=== PATIENT | female | born 1990 | race Caucasian/White ===

== ENCOUNTER 2020-10-02 09:49 | Inpatient (IN) | payer OTHER ==
[~2020-10-02] VITALS: Ht 170.2 cm; Wt 77.2 kg
[~2020-10-02 09:49] MED LIST: ETHI1TAB26 PO; OXYC1TAB14; PREN-3; SERT100T PO
[2020-10-02] MEDS ORDERED: LIDOCAINE 1%, 20ML ONE (10:09)
[2020-10-02] MEDS ORDERED: NEWBORN KIT ONE (10:09)
[2020-10-02] MEDS ORDERED: OXYTOCIN 30U/ 0.9% NaCL 500ML 500 ML ONE (10:09)
[2020-10-02] MEDS ORDERED: D5%-LACTATED RINGERS 1,000 ML IV SCH ×2 (10:30)
[2020-10-02] MEDS ORDERED: METOCLOPRAMIDE 5 MG/ML, 2ML IVPush PRN ×3 (10:30)
[2020-10-02] MEDS ORDERED: FENTANYL PF 100 MCG/2ML IVPush PRN ×2 (10:30)
[2020-10-02] MEDS ORDERED: LACTATED RINGERS 1,000 ML IV SCH ×2 (10:30→12:00)
[2020-10-02] MEDS ORDERED: TERBUTALINE 1 MG/ML, 1ML IVPush PRN ×2 (10:30)
[2020-10-02] MEDS ORDERED: FENTANYL PF 100 MCG/2ML IV PRN ×2 (10:30)
[2020-10-02] MEDS ORDERED: ONDANSETRON 2MG/ML, 2ML IVPush PRN ×3 (10:30)
[2020-10-02] MEDS: D5%-LACTATED RINGERS 1,000 ML IV SCH ×2 (10:30→18:30)
[2020-10-02] MEDS ORDERED: OXYTOCIN 30U/ 0.9% NaCL 500ML 500 ML IV ONE ×3 (10:30)
[2020-10-02] MEDS ORDERED: TERBUTALINE 1 MG/ML, 1ML SQ PRN ×3 (10:30)
[2020-10-02 10:44] LABS: ALANINE AMINOTRANSFERASE 6 U/L (12-78); ALBUMIN 2.5 g/dL (3.4-5.0); ANION GAP 10 mmol/L (5-15); CALCIUM 8.6 mg/dL (8.5-10.1); CHLORIDE 110 mmol/L (98-107); CREATININE 0.63 mg/dL (0.55-1.02)
[2020-10-02 10:45] VITALS: BP 135/95
[2020-10-02 10:48] LABS: ALKALINE PHOSPHATASE 193 U/L (45-117); BILIRUBIN,TOTAL 0.3 mg/dL (0.2-1.0); MEAN CORPUSCULAR HEMOGLOBIN 21.2 pg (27.0-34.8); MEAN CORPUSCULAR HGB CONC 30.2 g/dL (32.4-35.8); MEAN PLATELET VOLUME 9.3 fL (7.4-10.4); PLATELET COUNT 231 x10^3/uL (130-400); RED BLOOD COUNT 3.19 x10^6/uL (3.82-5.3); TOTAL PROTEIN 6.8 g/dL (6.4-8.2)
[2020-10-02 10:56] LABS: BAND#(MANUAL) 0.11 x10^3/uL; BANDS%(MANUAL) 1 % (0-7); EOS#(MANUAL) 0.22 x10^3/uL (0.0-0.4); EOS% (MANUAL) 2 % (1-7); LYMPH#(MANUAL) 1.42 x10^3/uL (1-3.4); LYMPHS% (MANUAL) 13 % (22-44); MD YES; METAMYELOCYTES# (MANUAL) 0.11 x10^3/uL (0-0); METAMYELOCYTES% (MANUAL) 1 % (0-1); MONOS#(MANUAL) 0.44 x10^3/uL (0.3-2.7); MONOS% (MANUAL) 4 % (2-9); SEG#(MANUAL) 8.61 x10^3/uL (1.8-6.8); SEGS% (MANUAL) 79 % (42-75)
[2020-10-02 10:57] LABS: ANISOCYTOSIS 1+; HYPOCHROMIA 1+; MICROCYTOSIS 1+; POLYCHROMASIA 1+
[2020-10-02 10:58] LABS: <PLATELET ESTIMATE> ADEQUATE; <PLT MORPHOLOGY> NORMAL PLT MORPH
[2020-10-02] MEDS ORDERED: TRANEXAMIC ACID 100 MG/ML, 10ML ONE (11:04)
[2020-10-02 11:15] LABS: AMPHETAMINE SCREEN, URINE Negative (Negative); BARBITURATE SCREEN, URINE Negative (Negative); BENZODIAZEPINE SCREEN, URINE Negative (Negative); CANNABINOID SCREEN, URINE Positive (Negative); COCAINE SCREEN, URINE Negative (Negative); METHADONE SCREEN, URINE Negative (Negative); OPIATE SCREEN, URINE Negative (Negative)
[2020-10-02] MEDS ORDERED: BUPIVACAINE 0.25% ONE (11:17)
[2020-10-02] MEDS ORDERED: FENTANYL/BUPIV./NS/PF 250 ML EPIDCONT ONE (11:18)
[2020-10-02] MEDS: LACTATED RINGERS 1,000 ML IV SCH ×2 (11:24→16:01)
[2020-10-02] MEDS ORDERED: FENTANYL/BUPIV./NS/PF 250 ML EPIDCONT SCH (12:00)
[2020-10-02] MEDS ORDERED: EPHEDRINE 50 MG/ML, 1ML IVPush PRN (12:00)
[2020-10-02] MEDS ORDERED: LACTATED RINGERS 1,000 ML IVBOLUS PRN (12:00)
[2020-10-02] MEDS ORDERED: TRANEXAMIC ACID 100 MG/ML, 10ML IV ONE (13:00)
[2020-10-02] MEDS ORDERED: PREN1TAB60 PO (14:55)
[2020-10-02] MEDS ORDERED: ONDANSETRON 2MG/ML, 2ML IV PRN (18:30)
[2020-10-02] MEDS ORDERED: DIPH,PERTUSS(ACELL),TET VAC/PF NC IM-VACC PRN (18:30)
[2020-10-02] MEDS ORDERED: BISACODYL 10 MG SUPP PR PRN (18:30)
[2020-10-02] MEDS ORDERED: MISOPROSTOL 200 MCG TABLET PR PRN (18:30)
[2020-10-02] MEDS ORDERED: SIMETHICONE 80 MG CHEW TAB PO PRN (18:30)
[2020-10-02] MEDS ORDERED: GLYCERIN ADULT SUPP PR PRN (18:30)
[2020-10-02] MEDS ORDERED: CARBOPROST TROMETHAMINE 250 MCG/ML, 1ML IM PRN (18:30)
[2020-10-02] MEDS ORDERED: MAGNESIUM HYDROXIDE 8%, 30ML UDC PO PRN (18:30)
[2020-10-02] MEDS ORDERED: MEASLES,MUMPS&RUBELLA VACC/PF 0.5 ML SQ-VACC PRN (18:30)
[2020-10-02] MEDS ORDERED: ACETAMINOPHEN 325 MG TABLET PO PRN (18:30)
[2020-10-02] MEDS: OXYTOCIN 30U/ 0.9% NaCL 500ML 500 ML IV SCH (18:50)
[2020-10-02 21:15] VITALS: BP 140/83
[2020-10-02] MEDS: OXYcodone/APAP 5/325MG TABLET PO PRN (22:23)
[2020-10-02 23:44] LABS: MICROSCOPIC INDICATED
[2020-10-03] VITALS: BP 119/77
[2020-10-03 02:36] LABS: BASOPHILS % (AUTO) 1 % (0-1); EOSINOPHILS % (AUTO) 0 % (1-7); LYMPHOCYTES % (AUTO) 12 % (22-44); MEAN CORPUSCULAR HEMOGLOBIN 21.2 pg (27.0-34.8); MEAN CORPUSCULAR HGB CONC 30.2 g/dL (32.4-35.8); MEAN PLATELET VOLUME 8.9 fL (7.4-10.4); MONOCYTES % (AUTO) 6 % (2-9); NEUTROPHILS % (AUTO) 81 % (42-75); PLATELET COUNT 179 x10^3/uL (130-400); RED BLOOD COUNT 3.01 x10^6/uL (3.82-5.3)
[2020-10-03 02:41] LABS: MD NO
[2020-10-03] MEDS: OXYcodone/APAP 5/325MG TABLET PO PRN ×4 (02:42→21:28)
[2020-10-03] MEDS: OXYTOCIN 30U/ 0.9% NaCL 500ML 500 ML IV SCH ×2 (04:30→05:46)
[2020-10-03 04:45] VITALS: BP 121/80
[2020-10-03 07:45] VITALS: BP 124/74
[2020-10-03] MEDS: IBUPROFEN 600 MG TABLET PO PRN ×3 (08:00→21:28)
[2020-10-03] MEDS: DOCUSATE 100 MG CAPSULE PO PRN ×2 (08:00→21:28)
[2020-10-03] MEDS: PRENATAL VIT/IRON/FA 1 EACH TABLET PO SCH (09:00)
[2020-10-03] MEDS: FERROUS SULFATE 325 MG TABLET PO SCH (09:41)
[2020-10-03 12:00] VITALS: BP 141/92
[2020-10-03 19:45] VITALS: BP 139/83
[2020-10-04] MEDS: OXYTOCIN 30U/ 0.9% NaCL 500ML 500 ML IV SCH ×2 (00:30→10:30)
[2020-10-04] MEDS: OXYcodone/APAP 5/325MG TABLET PO PRN ×2 (02:48→08:51)
[2020-10-04] MEDS: IBUPROFEN 600 MG TABLET PO PRN (05:44)
[2020-10-04 07:15] VITALS: BP 143/86
[2020-10-04] MEDS ORDERED: FERR-36 PO (07:44)
[2020-10-04] MEDS ORDERED: IBUP-1222 PO (07:44)
[2020-10-04] MEDS ORDERED: DOCU-131 PO (07:44)
[2020-10-04] MEDS ORDERED: OXYC1TAB14 PO (07:44)
[2020-10-04] MEDS: PRENATAL VIT/IRON/FA 1 EACH TABLET PO SCH (08:50)
[2020-10-04] MEDS: FERROUS SULFATE 325 MG TABLET PO SCH (08:50)
[2020-10-04] MEDS: DOCUSATE 100 MG CAPSULE PO PRN (08:50)
== END 2020-10-04 13:50 | disposition home or self-care (01) | DRG 806 ==
LOC: LDOP 09:49 → LDIP 10:01 → 2NW 21:07
PROVIDERS: ADMIT Obstetrics & Gynecology; ATTEND Obstetrics & Gynecology
PROC: 10E0XZZ Delivery of Products of Conception, External Approach (ICD-10-PCS; principal; 2020-10-02)
PROC: 0HQ9XZZ Repair Perineum Skin, External Approach (ICD-10-PCS; 2020-10-02)
PROC: 3E0R3BZ Introduction of Anesthetic Agent into Spinal Canal, Percutaneous Approach (ICD-10-PCS; 2020-10-02)
PROC: 00HU33Z Insertion of Infusion Device into Spinal Canal, Percutaneous Approach (ICD-10-PCS; 2020-10-02)
PROC: 3E0P7VZ Introduction of Hormone into Female Reproductive, Via Natural or Artificial Opening (ICD-10-PCS; 2020-10-02)
DX: O77.0 Labor and delivery complicated by meconium in amniotic fluid (principal); O87.8 Other venous complications in the puerperium; Z37.0 Single live birth; O13.4 Gestational [pregnancy-induced] hypertension without significant proteinuria, complicating childbirth; O70.0 First degree perineal laceration during delivery; Z20.822 Contact with and (suspected) exposure to COVID-19; Z3A.38 38 weeks gestation of pregnancy; Z87.442 Personal history of urinary calculi; Z90.49 Acquired absence of other specified parts of digestive tract; D50.9 Iron deficiency anemia, unspecified
CPT/HCPCS: 36415; 80053; 80307; 81001; 82728; 83540; 83550; 84550; 85025; 86592; 86762; 86850; 86900; 86923; 87077; 87081; 87086; 87186; 87340; 87635; 87806; G0378; J2405; G0475; J2590; J7120